=== PATIENT | female | born 1935 | race Caucasian/White ===

== ENCOUNTER 2021-04-03 10:04 | Inpatient (IN) | payer MEDICARE ==
[~2021-04-03] VITALS: Ht 162.6 cm; Wt 55.0 kg
[2021-04-03] VITALS (17 sets, daily range): BP systolic 98–155; BP diastolic 50–86
[2021-04-03] MEDS ORDERED: LIDOcaine 2% 10ml TOPICAL JELLY (Urojet) TP ONE (10:15)
[2021-04-03 10:33] LABS: BASOPHILS % (AUTO) 0.4 % (0-1); EOSINOPHILS % (AUTO) 0.5 % (0-6); HEMATOCRIT 33.3 % (35.0-45.0); HEMOGLOBIN 11.4 g/dl (12.0-16.0); LYMPHOCYTES # (AUTO) 1.3 X10'3 (1.1-4.8); LYMPHOCYTES % (AUTO) 12.9 % (21-51); MEAN CORPUSCULAR HEMOGLOBIN 31.5 PG (27.0-31.0); MEAN CORPUSCULAR HGB CONC 34.1 g/dL (33.0-36.5); MEAN CORPUSCULAR VOLUME 92.5 FL (78-98); MEAN PLATELET VOLUME 7.9 FL (7.4-10.4); MONOCYTES # (AUTO) 0.7 X10'3 (0-0.9); MONOCYTES % (AUTO) 7.1 % (2-12); NEUTROPHILS # (AUTO) 7.7 X10'3 (1.8-7.7); NEUTROPHILS % (AUTO) 79.1 % (42-75); PLATELET COUNT 197 X10'3 (140-440); RED CELL DISTRIBUTION WIDTH 13.9 % (11.5-14.5); WHITE BLOOD COUNT 9.8 X10'3 (4.5-11.0)
[2021-04-03 10:46] LABS: ALANINE AMINOTRANSFERASE 15 U/L (12-78); ALBUMIN 2.8 G/DL (3.4-5.0); ALBUMIN/GLOBULIN RATIO 0.8 (1.1-1.5); ALKALINE PHOSPHATASE 87 IU/L (46-116); ANION GAP 9 (8-16); ASPARTATE AMINO TRANSFERASE 15 U/L (10-37); BILIRUBIN,TOTAL 0.3 MG/DL (0.1-1.0); BLOOD UREA NITROGEN 18 MG/DL (7-18); BUN/CREATININE RATIO 16.4 (6.6-38.0); CALCIUM 8.8 MG/DL (8.5-10.1); CHLORIDE 104 MMOL/L (99-107); GLUCOSE 123 MG/DL (70-104); POTASSIUM 4.2 MMOL/L (3.5-5.1); SODIUM 140 MMOL/L (135-145); TOTAL CARBON DIOXIDE 27.5 MMOL/L (24-32); TOTAL PROTEIN 6.2 G/DL (6.4-8.2); eGFR 47 ML/MIN
[2021-04-03] MEDS ORDERED: mag hydrox/Alum hydrox/simeth 30ml oral suspension PO PRN (11:55)
[2021-04-03] MEDS ORDERED: acetaminophen 325mg tablet PO PRN (11:55)
[2021-04-03] MEDS ORDERED: ondansetron/PF 4mg/2ml inj IV PRN ×2 (11:55→17:40)
[2021-04-03] MEDS ORDERED: morphine 2 MG/ML inj. syringe IV PRN ×2 (11:55→17:40)
[2021-04-03] MEDS ORDERED: magnesium hydroxide 30ml (MOM) UD suspension PO PRN (11:55)
[2021-04-03] MEDS: normal saline 1000ml 1,000 ML IV SCH ×2 (12:04→20:57)
[2021-04-03] MEDS ORDERED: ALEN70TA80 PO (13:03)
[2021-04-03] MEDS ORDERED: OMEG-79 PO (13:03)
[2021-04-03] MEDS ORDERED: BUSP10TA10 PO (13:03)
[2021-04-03] MEDS ORDERED: ALPR-385 PO (13:03)
[2021-04-03] MEDS ORDERED: ANAS1TAB24 PO (13:03)
[2021-04-03] MEDS ORDERED: ASPI-10 PO (13:03)
[2021-04-03] MEDS ORDERED: CHOL100046 PO (13:03)
[2021-04-03] MEDS ORDERED: SODI100035 PO (13:03)
[2021-04-03] MEDS ORDERED: SERT-432 PO (13:03)
--- NOTE | 2021-04-03 13:27 | NUR ---
GEORGETTE PUCKETT REQUESTING A CALL TO SPEAK WITH THE ORTHOPOEDIST PRIOR TO SURGERY
[2021-04-03] MEDS ORDERED: non-formulary drug (Alendronate Sodium 1 TAB) PO SCH (13:35)
[2021-04-03 14:25] LABS: CLARITY,URINE CLEAR (Clear); COLOR,URINE YELLOW (Yellow); GLUCOSE, URINE NEGATIVE (Neg); KETONES,URINE NEGATIVE (Neg); LEUKOCYTE ESTERASE ,URINE NEGATIVE (Neg); NITRITES, URINE NEGATIVE (Neg); OCCULT BLOOD,URINE NEGATIVE (Neg); PROTEIN,URINE NEGATIVE (Neg); UA COLLECTION TYPE CLN CATCH MIDSTREAM; UROBILINOGEN,URINE 0.2 E.U/dL (0.2-1.0)
[2021-04-03] MEDS ORDERED: MELA5CAP PO (15:29)
[2021-04-03] MEDS ORDERED: METO50TA16 PO (15:32)
[2021-04-03] MEDS ORDERED: GABA-530 PO (15:33)
[2021-04-03] MEDS ORDERED: QUET25TA PO (15:37)
[2021-04-03] MEDS ORDERED: OSC500T PO (15:38)
[2021-04-03] MEDS ORDERED: ACET-3080 PO (15:40)
[2021-04-03] MEDS ORDERED: ceFAZolin 1000mg inj ONE ×3 (15:52→17:02)
--- NOTE | 2021-04-03 15:57 | NUR ---
Called report to beam press operator.
[2021-04-03] MEDS ORDERED: TRANEXAMIC ACID 1 GM IN NACL,ISO-OS 100 ML IV ONE (16:05)
[2021-04-03] MEDS ORDERED: midazolam 1 mg/ML 2ml injection ONE (16:28)
[2021-04-03] MEDS ORDERED: fentaNYL/PF 50MCG/1 ML 2ML syringe ONE (16:28)
[2021-04-03] MEDS ORDERED: propofol inj 20 ML IV ONE (17:02)
[2021-04-03] MEDS ORDERED: albumin (Human) 5% 250ml 250 ML IV ONE (17:38)
[2021-04-03] MEDS ORDERED: ringers solution, lacted 1,000 ML IV SCH (17:40)
[2021-04-03] MEDS ORDERED: meperidine/PF 25mg/ml syringe IV PRN ×3 (17:40)
[2021-04-03] MEDS ORDERED: morphine 4 MG/ML inj SYRINge IV PRN (17:40)
[2021-04-03] MEDS ORDERED: proCHLORperazine 10 MG/2 ml inj IV PRN (17:40)
--- NOTE | 2021-04-03 18:21 | NUR ---
Gave report to Maritza MCGEE.
--- NOTE | 2021-04-03 18:22 | NUR ---
Received from OR via BED , accompanied by Anesthesiologist DR BAEZ and report given by Anesthesiologist. Received from OR via BED, accompanied by Anesthesiologist. PATIENT ORIENTED TO PACE AND SITUATION, DENIES PAIN, V/S WNL, NEUROVASCULAR CHECKS INTACT EXPECTED FOR SPINAL AT UMBILICUS LEVEL, DOPPLER PULSE RIGHT FOOT, 18G PIV LUE, SCD ON, FC INLACE WITH CLEAR YELLOW URINE PRESENT. GLASSES PLACED ON PT. Addendum: 04/03/21 at 1909 by [place] Mar RN Amended: Links added.
--- NOTE | 2021-04-03 19:30 | NUR ---
Received report from [place] MCGEE in recovery. Pt arrived on the unit in her bed, on 3L via N/C, with NS running @50. Only personal belongings the pt had with her was her glasses in a case. Pt had no signs of distress. Will continue to monitor.
--- NOTE | 2021-04-03 19:32 | NUR ---
VSS. IV PATENT, FC WITH GOOD URINE OUTPUT, RIGHT HIP WRAP CDI, RIGHT PEDAL PULSE POSITIVE WITH DOPPLER, FOOT PINK AND WARM. SPINAL CONTINUES AT UMBILICUS LEVEL. TRANSFERRED TO VIA BED WITH RN, REPORT GIVEN TO DAMIAN MCGEE WHO ASSUMED CARE OF PT. GLASSES ON PT AT TIME OF TRANSFER Addendum: 04/03/21 at 1957 by [place] Mar RN Amended: Links added.
[2021-04-03] MEDS: OMEGA-3/DHA/EPA/FISH OIL 1 EACH CAPSULE.DR PO SCH (20:45)
[2021-04-03] MEDS: docusate sod 100mg capsule PO SCH (20:45)
[2021-04-03] MEDS: ALPRAZolam 0.5mg tablet PO SCH (20:45)
[2021-04-03] MEDS: sodium chloride 1gm tablet PO SCH (20:46)
[2021-04-03] MEDS: busPIRone 5mg tablet PO SCH (20:46)
[2021-04-03] MEDS: morphine 2 MG/ML inj. syringe IV PRN (22:24)
[2021-04-04] VITALS: BP 135/56
--- NOTE | 2021-04-04 06:27 | NUR ---
Problems reprioritized. Patient report given, questions answered & plan of care reviewed with Cristel MCGEE.
--- NOTE | 2021-04-04 06:41 | NUR ---
I have reviewed and agree with all interventions, assessments performed and documented by Sweetie MCGEE .
[2021-04-04 06:47] LABS: BASOPHILS % (AUTO) 0.1 % (0-1); EOSINOPHILS % (AUTO) 0.1 % (0-6); HEMATOCRIT 31.9 % (35.0-45.0); LYMPHOCYTES # (AUTO) 1.2 X10'3 (1.1-4.8); LYMPHOCYTES % (AUTO) 10.5 % (21-51); MEAN CORPUSCULAR HEMOGLOBIN 31.9 PG (27.0-31.0); MEAN CORPUSCULAR HGB CONC 34.5 g/dL (33.0-36.5); MEAN CORPUSCULAR VOLUME 92.5 FL (78-98); MEAN PLATELET VOLUME 9.2 FL (7.4-10.4); MONOCYTES # (AUTO) 0.6 X10'3 (0-0.9); MONOCYTES % (AUTO) 4.8 % (2-12); NEUTROPHILS # (AUTO) 9.8 X10'3 (1.8-7.7); NEUTROPHILS % (AUTO) 84.5 % (42-75); PLATELET COUNT 180 X10'3 (140-440); RED BLOOD COUNT 3.45 X10'6 (4.20-5.60); WHITE BLOOD COUNT 11.6 X10'3 (4.5-11.0)
[2021-04-04 06:57] LABS: ALBUMIN 2.9 G/DL (3.4-5.0); ANION GAP 12 (8-16); BLOOD UREA NITROGEN 14 MG/DL (7-18); BUN/CREATININE RATIO 18.2 (6.6-38.0); CALCIUM 8.5 MG/DL (8.5-10.1); CHLORIDE 104 MMOL/L (99-107); CREATININE 0.77 MG/DL (0.40-0.90); GLUCOSE 111 MG/DL (70-104); POTASSIUM 3.7 MMOL/L (3.5-5.1); SODIUM 139 MMOL/L (135-145); TOTAL CARBON DIOXIDE 23.5 MMOL/L (24-32); eGFR 71 ML/MIN
--- NOTE | 2021-04-04 07:54 | NUR ---
page to dr mcbride PAGER ID: [phone] MESSAGE: from Cristel beth- [phone] Jair per night rn pt had stool that appeared to have blood in it. would you like to have Elijared held? also please consider ordering H&H. thank you!
[2021-04-04] MEDS: docusate sod 100mg capsule PO SCH ×2 (08:03→22:01)
[2021-04-04] MEDS: OMEGA-3/DHA/EPA/FISH OIL 1 EACH CAPSULE.DR PO SCH ×2 (08:03→22:02)
[2021-04-04] MEDS: sertraline 25mg tablet PO SCH (08:03)
[2021-04-04] MEDS: aspirin 325mg tablet PO SCH (08:03)
[2021-04-04] MEDS: sodium chloride 1gm tablet PO SCH ×2 (08:03→22:02)
[2021-04-04] MEDS: anastrozole 1 MG tablet PO SCH (08:05)
[2021-04-04] MEDS: enoxaparin 40mg/0.4ml syringe SUBCUT SCH (08:06)
--- NOTE | 2021-04-04 08:10 | NUR ---
messge send to pharmacy to request [phone] [address]
--- NOTE | 2021-04-04 09:15 | NUR ---
Age Screen: Pt admitted s/p fall w/ R hip fracture per EMR; has a hx of dementia. Pt underwent R hip anton arthroplasty 04/03, now on Regular diet pending further PO intake. No edema noted. Will continue to monitor for additional protein needs. Addendum: 04/04/21 at [address] Amended: Links added.
[2021-04-04] MEDS: morphine 2 MG/ML inj. syringe IV PRN (10:41)
[2021-04-04] MEDS: busPIRone 5mg tablet PO SCH ×2 (15:25→22:01)
[2021-04-04] MEDS: normal saline 1000ml 1,000 ML IV SCH (17:33)
[2021-04-04 20:00] VITALS: BP 139/50
[2021-04-04] MEDS: ALPRAZolam 0.5mg tablet PO SCH (22:02)
[2021-04-05] VITALS: BP 115/53
--- NOTE | 2021-04-05 02:55 | NUR ---
LATE ENTRY 04/04/211929 PT ASSESSED AND ACKERMAN HAD BEEN REMOVED BY PT WELL IV REMOVED ( CATH TIP INTACT ) BY PT .PT CLEANED .LAMIN CARE DONE . PT IS ON PROTOCOL PER CHARGE NURSE RENETTA MCGEE. WILL MONITOR . UOP
--- NOTE | 2021-04-05 02:58 | NUR ---
0200 PT HAS NOT VOIDED SINCE SHE REMOVED ACKERMAN. BLADDER SCAN > 260 CHARGE NURSE RENETTA STATED PER PROTOCOL ACKERMAN COULD BE REINSERTED . ACKERMAN PLACED USING STERILE TECHNIQUE 16 F. PT TOLERATED WELL IMMEDIATE CLEAR YELLOW URINE OBTAINED .
--- NOTE | 2021-04-05 03:01 | NUR ---
PT IS S/P R HIP SURGERY AND IS BEDREST AT THIS TIME
[2021-04-05] MEDS: normal saline 1000ml 1,000 ML IV SCH ×2 (03:55→04:48)
[2021-04-05] MEDS: morphine 2 MG/ML inj. syringe IV PRN ×2 (04:43→08:42)
[2021-04-05 05:52] LABS: BASOPHILS % (AUTO) 0.2 % (0-1); EOSINOPHILS % (AUTO) 0.2 % (0-6); HEMOGLOBIN 10.3 g/dl (12.0-16.0); LYMPHOCYTES # (AUTO) 1.7 X10'3 (1.1-4.8); MEAN CORPUSCULAR HEMOGLOBIN 31.9 PG (27.0-31.0); MEAN CORPUSCULAR HGB CONC 34.4 g/dL (33.0-36.5); MEAN CORPUSCULAR VOLUME 92.5 FL (78-98); MEAN PLATELET VOLUME 8.6 FL (7.4-10.4); MONOCYTES # (AUTO) 0.8 X10'3 (0-0.9); MONOCYTES % (AUTO) 7.2 % (2-12); NEUTROPHILS # (AUTO) 8.6 X10'3 (1.8-7.7); NEUTROPHILS % (AUTO) 77.4 % (42-75); PLATELET COUNT 146 X10'3 (140-440); RED BLOOD COUNT 3.25 X10'6 (4.20-5.60); RED CELL DISTRIBUTION WIDTH 13.7 % (11.5-14.5); WHITE BLOOD COUNT 11.1 X10'3 (4.5-11.0)
[2021-04-05 06:00] LABS: ALBUMIN 2.3 G/DL (3.4-5.0); ANION GAP 7 (8-16); BLOOD UREA NITROGEN 15 MG/DL (7-18); BUN/CREATININE RATIO 20.8 (6.6-38.0); CALCIUM 8.1 MG/DL (8.5-10.1); CHLORIDE 103 MMOL/L (99-107); CREATININE 0.72 MG/DL (0.40-0.90); GLUCOSE 106 MG/DL (70-104); POTASSIUM 3.5 MMOL/L (3.5-5.1); SODIUM 135 MMOL/L (135-145); TOTAL CARBON DIOXIDE 24.9 MMOL/L (24-32); eGFR 76 ML/MIN
--- NOTE | 2021-04-05 06:00 | NUR ---
Patient in room [facility]. I have received report from yue beth and had the opportunity to ask questions and assume patient care.
[2021-04-05 08:00] VITALS: BP 133/60
[2021-04-05] MEDS: aspirin 325mg tablet PO SCH (08:40)
[2021-04-05] MEDS: docusate sod 100mg capsule PO SCH ×2 (08:40→20:32)
[2021-04-05] MEDS: sertraline 25mg tablet PO SCH (08:40)
[2021-04-05] MEDS: sodium chloride 1gm tablet PO SCH ×2 (08:40→20:32)
[2021-04-05] MEDS: anastrozole 1 MG tablet PO SCH (08:40)
[2021-04-05] MEDS: OMEGA-3/DHA/EPA/FISH OIL 1 EACH CAPSULE.DR PO SCH ×2 (08:40→20:32)
[2021-04-05] MEDS: busPIRone 5mg tablet PO SCH ×2 (08:40→20:32)
[2021-04-05] MEDS: enoxaparin 40mg/0.4ml syringe SUBCUT SCH (08:41)
[2021-04-05] MEDS ORDERED: ketorolac tromethamine 15mg/ml inj. IM SCH (11:35)
[2021-04-05 12:00] VITALS: BP 107/52
[2021-04-05] MEDS: acetaminophen 325mg tablet PO SCH ×2 (14:00→20:33)
--- NOTE | 2021-04-05 17:10 | NUR ---
MAK cesar called to clarify toradol order, PA to call pharmacy to change IM to IV
[2021-04-05] MEDS: traMADol 50MG tablet PO PRN (17:36)
[2021-04-05 20:00] VITALS: BP 123/50
[2021-04-05] MEDS: ALPRAZolam 0.5mg tablet PO SCH (20:33)
[2021-04-05] MEDS: ketorolac tromethamine 15mg/ml inj. IV SCH (20:39)
[2021-04-06] VITALS: BP 128/62
[2021-04-06] MEDS: ketorolac tromethamine 15mg/ml inj. IV SCH ×3 (03:23→14:15)
[2021-04-06] MEDS: acetaminophen 325mg tablet PO SCH ×4 (03:24→20:34)
--- NOTE | 2021-04-06 06:00 | NUR ---
Patient in room [facility]. I have received report from yue beth and had the opportunity to ask questions and assume patient care.
[2021-04-06 06:10] LABS: BASOPHILS % (AUTO) 0.3 % (0-1); EOSINOPHILS # (AUTO) 0.2 X10'3 (0-0.9); EOSINOPHILS % (AUTO) 2.1 % (0-6); HEMATOCRIT 28.5 % (35.0-45.0); LYMPHOCYTES # (AUTO) 1.9 X10'3 (1.1-4.8); LYMPHOCYTES % (AUTO) 19.2 % (21-51); MEAN CORPUSCULAR HEMOGLOBIN 32.2 PG (27.0-31.0); MEAN CORPUSCULAR HGB CONC 35.1 g/dL (33.0-36.5); MEAN CORPUSCULAR VOLUME 91.8 FL (78-98); MEAN PLATELET VOLUME 9.4 FL (7.4-10.4); MONOCYTES # (AUTO) 0.8 X10'3 (0-0.9); MONOCYTES % (AUTO) 8.5 % (2-12); NEUTROPHILS # (AUTO) 6.8 X10'3 (1.8-7.7); NEUTROPHILS % (AUTO) 69.9 % (42-75); PLATELET COUNT 147 X10'3 (140-440); RED BLOOD COUNT 3.11 X10'6 (4.20-5.60); RED CELL DISTRIBUTION WIDTH 14.1 % (11.5-14.5); WHITE BLOOD COUNT 9.8 X10'3 (4.5-11.0)
[2021-04-06 06:11] LABS: ALBUMIN 2.1 G/DL (3.4-5.0); ANION GAP 6 (8-16); BLOOD UREA NITROGEN 20 MG/DL (7-18); BUN/CREATININE RATIO 23.5 (6.6-38.0); CHLORIDE 103 MMOL/L (99-107); CREATININE 0.85 MG/DL (0.40-0.90); GLUCOSE 93 MG/DL (70-104); POTASSIUM 3.7 MMOL/L (3.5-5.1); SODIUM 134 MMOL/L (135-145); TOTAL CARBON DIOXIDE 25.2 MMOL/L (24-32); eGFR 63 ML/MIN
--- NOTE | 2021-04-06 06:39 | NUR ---
0430 pt unable to void . bladder scan > 468 ml/ straight cath performed using sterile technique by jyoti beth. pt tolerated well
--- NOTE | 2021-04-06 06:41 | NUR ---
0530 straight cath done at this time
[2021-04-06 07:00] VITALS: BP 111/48
[2021-04-06] MEDS: sodium chloride 1gm tablet PO SCH ×2 (07:38→20:34)
[2021-04-06] MEDS: anastrozole 1 MG tablet PO SCH (07:38)
[2021-04-06] MEDS: sertraline 25mg tablet PO SCH (07:39)
[2021-04-06] MEDS: docusate sod 100mg capsule PO SCH ×2 (07:39→20:34)
[2021-04-06] MEDS: aspirin 325mg tablet PO SCH (07:39)
[2021-04-06] MEDS: busPIRone 5mg tablet PO SCH ×2 (07:39→20:34)
[2021-04-06] MEDS: OMEGA-3/DHA/EPA/FISH OIL 1 EACH CAPSULE.DR PO SCH ×2 (07:40→20:34)
[2021-04-06 11:00] VITALS: BP 104/51
--- NOTE | 2021-04-06 14:32 | NUR ---
bladderscan [id number] 030
[2021-04-06] MEDS: traMADol 50MG tablet PO PRN ×2 (17:03→22:09)
--- NOTE | 2021-04-06 17:49 | NUR ---
pt was able to urinate on own. post-void residual 13ml. pt hip wrap became soiled and remains with pt belonging in case her facility wishes to utilize it
[2021-04-06 20:00] VITALS: BP 128/59
[2021-04-06] MEDS: ALPRAZolam 0.5mg tablet PO SCH (20:34)
[2021-04-07] VITALS: BP 147/65
--- NOTE | 2021-04-07 04:30 | NUR ---
0315 PT HAS BEEN INCONTINENT OF SMALL AMT OF URINE. BLADDER SCAN 396. WILL REPEAT. PT ENCOURAGED TO TRY TO URINATE PT HAS BEEN DRINKING FLUIDS TONIGHT
--- NOTE | 2021-04-07 04:53 | NUR ---
BLADDER SCAN DONE 520ML NOTED
[2021-04-07] MEDS: traMADol 50MG tablet PO PRN ×2 (05:09→05:11)
--- NOTE | 2021-04-07 06:46 | NUR ---
LATE ENTRY 0530 PT HAD 520ML IN BLADDER . PT IS DIFFICULT TO CATH LETICIA RN ATTEMPTED TO STRAIGHT CATH PTBUT WAS UNSUCCESSFUL. I WAS UNABLE TO STRAIGHT CATH. CHARGE NURSE KEVIN WAS NOTFIIED. INSTRUCTED TO ENDORSE TO AM NURSE. REPORT GIVEN AND AM NURSE INFORMED OF NEED TO STRAIGHT CATH
[2021-04-07] MEDS: OMEGA-3/DHA/EPA/FISH OIL 1 EACH CAPSULE.DR PO SCH (07:15)
[2021-04-07] MEDS: sodium chloride 1gm tablet PO SCH (07:15)
[2021-04-07] MEDS: busPIRone 5mg tablet PO SCH (07:16)
[2021-04-07] MEDS: anastrozole 1 MG tablet PO SCH (07:16)
[2021-04-07] MEDS: docusate sod 100mg capsule PO SCH (07:16)
[2021-04-07] MEDS: aspirin 325mg tablet PO SCH (07:16)
[2021-04-07] MEDS: sertraline 25mg tablet PO SCH (07:16)
[2021-04-07 07:32] LABS: BASOPHILS % (AUTO) 0.4 % (0-1); EOSINOPHILS # (AUTO) 0.2 X10'3 (0-0.9); EOSINOPHILS % (AUTO) 1.7 % (0-6); HEMOGLOBIN 10.4 g/dl (12.0-16.0); LYMPHOCYTES # (AUTO) 1.2 X10'3 (1.1-4.8); LYMPHOCYTES % (AUTO) 12.1 % (21-51); MEAN CORPUSCULAR HGB CONC 34.7 g/dL (33.0-36.5); MEAN CORPUSCULAR VOLUME 92.3 FL (78-98); MEAN PLATELET VOLUME 9.5 FL (7.4-10.4); MONOCYTES # (AUTO) 0.8 X10'3 (0-0.9); MONOCYTES % (AUTO) 8.1 % (2-12); NEUTROPHILS # (AUTO) 7.6 X10'3 (1.8-7.7); NEUTROPHILS % (AUTO) 77.7 % (42-75); PLATELET COUNT 197 X10'3 (140-440); RED BLOOD COUNT 3.25 X10'6 (4.20-5.60); WHITE BLOOD COUNT 9.8 X10'3 (4.5-11.0)
[2021-04-07] MEDS ORDERED: LIDOcaine 2% 10ml TOPICAL JELLY (Urojet) TP ONE (07:35)
[2021-04-07 07:40] LABS: ALBUMIN 2.1 G/DL (3.4-5.0); ANION GAP 6 (8-16); BLOOD UREA NITROGEN 18 MG/DL (7-18); BUN/CREATININE RATIO 24.7 (6.6-38.0); CALCIUM 8.1 MG/DL (8.5-10.1); CHLORIDE 95 MMOL/L (99-107); CREATININE 0.73 MG/DL (0.40-0.90); GLUCOSE 80 MG/DL (70-104); POTASSIUM 4.1 MMOL/L (3.5-5.1); SODIUM 127 MMOL/L (135-145); TOTAL CARBON DIOXIDE 26.5 MMOL/L (24-32); eGFR 75 ML/MIN
[2021-04-07 07:41] VITALS: BP 123/67
--- NOTE | 2021-04-07 10:35 | NUR ---
Patient discharged back to [facility] with cuellar catheter for retention. Report called to Janet at facility who asked about if the patient would be coming back with pain med. Dr Marie is the Dr for [facility] and Janet called him to see about pain mediations while I talked to Dr Escalante after he communicated plan with her. I talked to Dr Hernandez and he will order pain medication for her. IV taken out, no tele. All belongings taken from room. [facility] took patient back to facility
== END 2021-04-07 10:32 | disposition home health service (06) | DRG 522 ==
LOC: ER 10:04 → ED HOLD 11:58 → SUR 3N 14:18
PROVIDERS: ADMIT Family Medicine; ATTEND Family Medicine
PROC: 0SRR0J9 Replacement of Right Hip Joint, Femoral Surface with Synthetic Substitute, Cemented, Open Approach (ICD-10-PCS; principal; 2021-04-03 16:24)
DX: M80.851A Other osteoporosis with current pathological fracture, right femur, initial encounter for fracture (principal); R64 Cachexia; F03.90 Unspecified dementia, unspecified severity, without behavioral disturbance, psychotic disturbance, mood disturbance, and anxiety; F41.9 Anxiety disorder, unspecified; W01.0XXA Fall on same level from slipping, tripping and stumbling without subsequent striking against object, initial encounter; Z20.822 Contact with and (suspected) exposure to COVID-19; Z66 Do not resuscitate; Z79.899 Other long term (current) drug therapy; Y93.89 Activity, other specified; Y92.098 Other place in other non-institutional residence as the place of occurrence of the external cause; Y99.8 Other external cause status; Z91.040 Latex allergy status; Z79.82 Long term (current) use of aspirin; Z68.20 Body mass index [BMI] 20.0-20.9, adult
CPT/HCPCS: 36415; 71045; 73502; 80048; 80053; 81003; 82948; 85025; 85610; 86885; 86900; 86901; 87081; 87635; 93005; 97110; 97161; 97530; 99285; A4215; A4618; A7000; C1713; C1758; C1776; C9250; C9803; G0378; J0690; J1650; J1885; J2250; J2270; J2704; J3010; J7030; J7120; P9045

== ENCOUNTER 2022-05-21 08:12 | Emergency (ER) | payer MEDICARE ==
[~2022-05-21] VITALS: Ht 160 cm; Wt 55.0 kg
[~2022-05-21 08:12] MED LIST: ACET-3080 PO; ALEN70TA80 PO; ALPR-385 PO; ANAS1TAB24 PO; ASPI-10 PO; BUSP10TA10 PO; CHOL100046 PO; GABA-530 PO; MELA5CAP PO; METO50TA16 PO; OMEG-79 PO; OSC500T PO; QUET25TA PO; SERT-432 PO; SODI100035 PO
[2022-05-21 09:02] LABS: BASOPHILS % (AUTO) 0.4 % (0-1); EOSINOPHILS # (AUTO) 0.1 X10'3 (0-0.9); EOSINOPHILS % (AUTO) 1.3 % (0-6); HEMATOCRIT 35.8 % (35.0-45.0); HEMOGLOBIN 12.1 g/dl (12.0-16.0); LYMPHOCYTES # (AUTO) 2.1 X10'3 (1.1-4.8); LYMPHOCYTES % (AUTO) 21.1 % (21-51); MEAN CORPUSCULAR HEMOGLOBIN 32.2 PG (27.0-31.0); MEAN CORPUSCULAR HGB CONC 33.9 g/dL (33.0-36.5); MEAN CORPUSCULAR VOLUME 95.1 FL (78-98); MONOCYTES # (AUTO) 0.6 X10'3 (0-0.9); MONOCYTES % (AUTO) 6.3 % (2-12); NEUTROPHILS # (AUTO) 7.2 X10'3 (1.8-7.7); NEUTROPHILS % (AUTO) 70.9 % (42-75); PLATELET COUNT 203 X10'3 (140-440); RED BLOOD COUNT 3.76 X10'6 (4.20-5.60); RED CELL DISTRIBUTION WIDTH 14.3 % (11.5-14.5); WHITE BLOOD COUNT 10.1 X10'3 (4.5-11.0)
[2022-05-21 09:10] VITALS: BP 170/73
[2022-05-21 09:15] LABS: ALANINE AMINOTRANSFERASE 16 U/L (12-78); ALBUMIN 3.4 G/DL (3.4-5.0); ALBUMIN/GLOBULIN RATIO 0.9 (1.1-1.5); ALKALINE PHOSPHATASE 77 IU/L (46-116); ASPARTATE AMINO TRANSFERASE 20 U/L (10-37); BILIRUBIN,TOTAL 0.4 MG/DL (0.1-1.0); BLOOD UREA NITROGEN 16 MG/DL (7-18); CALCIUM 9.3 MG/DL (8.5-10.1); CHLORIDE 100 MMOL/L (99-107); CREATININE 0.89 MG/DL (0.40-0.90); GLUCOSE 107 MG/DL (70-104); POTASSIUM 4.1 MMOL/L (3.5-5.1); TOTAL CARBON DIOXIDE 27.7 MMOL/L (24-32); TOTAL PROTEIN 7.2 G/DL (6.4-8.2); eGFR 60 ML/MIN
[2022-05-21 09:20] LABS: ANION GAP 8 (8-16); SODIUM 136 MMOL/L (135-145)
[2022-05-21] MEDS ORDERED: LIDOCAINE 2%/EPI 1:100,000 inj. Multi-dose 20 ML VIAL IJ ONE (09:38)
[2022-05-21] MEDS ORDERED: CEPH250T PO (10:12)
[2022-05-26] MEDS ORDERED: HYDR-3965 PO (15:46)
== END 2022-05-21 10:20 | disposition home or self-care (01) ==
LOC: ER 08:12
DX: S01.01XA Laceration without foreign body of scalp, initial encounter (principal); Z91.040 Latex allergy status; W19.XXXA Unspecified fall, initial encounter; Y93.89 Activity, other specified; Y92.89 Other specified places as the place of occurrence of the external cause; Y99.8 Other external cause status
CPT/HCPCS: 12032; 36415; 70450; 72125; 80053; 85025; 85610; 99284; A6222; A6449